=== PATIENT | male | born 1965 | race Caucasian/White ===

== ENCOUNTER 2017-11-22 15:54 | Emergency (ER) | payer MEDICAID, OTHER ==
[~2017-11-22] VITALS: Ht 175.3 cm; Wt 99.0 kg
[2017-11-22 22:00] LABS: CLARITY URINE CLOUDY (CLEAR); COLOR URINE YELLOW (YELLOW); KETONES URINE NEGATIVE (NEGATIVE); LEUKOCYTE ESTERASE URINE 3+ (NEGATIVE); NITRITE URINE POSITIVE (NEGATIVE); OCCULT BLOOD URINE 2+ (NEGATIVE); PROTEIN URINE 2+ (NEGATIVE); SPECIFIC GRAVITY URINE 1.017 (1.005-1.030); UROBILINOGEN URINE 0.2 E.U./dL (0.2-1.0)
[2017-11-22] MEDS ORDERED: CEFTRIAXONE 1 G PREMIX 50 ML IV ONE (22:30)
[2017-11-22 23:16] VITALS: BP 134/79
== END 2017-11-22 23:19 | disposition home or self-care (01) ==
LOC: ER 17:20
DX: N39.0 Urinary tract infection, site not specified (principal); M79.89 Other specified soft tissue disorders; Z85.72 Personal history of non-Hodgkin lymphomas
CPT/HCPCS: 51702; 81001; 87077; 87086; 87186; 96365; 99284; J0696

== ENCOUNTER 2018-02-21 11:20 | Inpatient (IN) | payer MEDICAID, OTHER ==
[~2018-02-21] VITALS: Ht 175.3 cm; Wt 93.9 kg
[2018-02-21] MEDS ORDERED: SODIUM CHLORIDE 0.9% 1,000 ML IV ONE ×2 (11:37→13:25)
[2018-02-21] MEDS ORDERED: KETOROLAC 30MG/ML VIAL IV ONE (11:45)
[2018-02-21 12:17] LABS: HEMATOCRIT. 23.3 % (42.0-52.0); HEMOGLOBIN. 8.2 g/dL (14.0-18.0); MEAN CORPUSCULAR VOLUME 90.7 fL (80.0-94.0); MEAN PLATELET VOLUME 7.3 fl (7.4-10.4); PLATELET 51 x1000/uL (130-400); RED BLOOD CELL COUNT 2.57 mill/uL (4.7-6.1); RED CELL DISTRIBUTION WIDTH 19.9 % (11.6-14.6)
[2018-02-21 12:23] LABS: CHLORIDE 71 mEq/L (98-107)
[2018-02-21 12:25] LABS: INR 1.5
[2018-02-21 12:29] LABS: PLATELET ESTIMATE MARKEDLY DECREASED
[2018-02-21] MEDS ORDERED: VANCOMYCIN 1 G PREMIX 200 ML IV ONE (14:00)
[2018-02-21] MEDS ORDERED: PIPERACILLIN/TAZ 3.375G PREMIX 50 ML IV ONE (14:00)
[2018-02-21 18:05] VITALS: BP 88/47
[2018-02-21 18:45] VITALS: BP 88/47
[2018-02-21] MEDS ORDERED: GUAIFENESIN 200MG/10ML SUGAR FREE UDC PO PRN (19:30)
[2018-02-21] MEDS ORDERED: CLONIDINE 0.1MG TABLET PO PRN (19:30)
[2018-02-21] MEDS ORDERED: DOCUSATE SODIUM 100MG CAPSULE PO PRN (19:30)
[2018-02-21 20:00] VITALS: BP 96/53
[2018-02-21] MEDS ORDERED: GABA-531 MT (21:51)
[2018-02-21 22:00] VITALS: BP 87/43
[2018-02-21] MEDS: ACETAMINOPHEN 325MG TABLET PO PRN (22:01)
[2018-02-21] MEDS: SODIUM CHLORIDE 0.9% 1,000 ML IV SCH (22:01)
[2018-02-21] MEDS: ONDANSETRON HCL 4MG/2ML VIAL IV PRN (22:01)
[2018-02-21] MEDS: MIDODRINE HCL 5MG TABLET PO SCH (22:02)
[2018-02-22] VITALS (12 sets, daily range): BP systolic 87–115; BP diastolic 49–107
[2018-02-22] MEDS: DIPHENHYDRAMINE 50MG/ML VIAL IV PRN ×2 (02:45→21:55)
[2018-02-22] MEDS ORDERED: HYDR4TAB56 PO (03:09)
[2018-02-22] MEDS ORDERED: BACL-141 PO (03:26)
[2018-02-22] MEDS ORDERED: EMTR1TAB12 PO (03:26)
[2018-02-22] MEDS ORDERED: DOLU50TA PO (03:26)
[2018-02-22] MEDS ORDERED: PANT40TA4 PO (03:26)
[2018-02-22] MEDS ORDERED: ONDA4TAB5 PO (03:26)
[2018-02-22] MEDS: SODIUM CHLORIDE 0.9% 1,000 ML IV SCH ×3 (03:38→21:42)
[2018-02-22] MEDS: HYDROCODONE/ACETAMINOPHEN 5/325MG TABLET PO PRN ×2 (03:43→14:15)
[2018-02-22] MEDS: ONDANSETRON HCL 4MG/2ML VIAL IV PRN ×2 (06:44→22:23)
[2018-02-22 06:50] LABS: HEMATOCRIT. 23.4 % (42.0-52.0); HEMOGLOBIN. 8.3 g/dL (14.0-18.0); MEAN CORPUSCULAR HEMOGLOBIN 31.7 pg (28.0-32.0); MEAN CORPUSCULAR VOLUME 89.8 fL (80.0-94.0); MEAN PLATELET VOLUME 8.1 fl (7.4-10.4); RED CELL DISTRIBUTION WIDTH 20.9 % (11.6-14.6)
[2018-02-22 06:59] LABS: CHLORIDE 75 mEq/L (98-107)
[2018-02-22 08:18] LABS: PLATELET 49 x1000/uL (130-400)
[2018-02-22] MEDS: MIDODRINE HCL 5MG TABLET PO SCH ×3 (09:11→17:12)
[2018-02-22 10:23] LABS: PLATELET ESTIMATE MARKEDLY DECREASED
[2018-02-22] MEDS: MAGNESIUM/ALUMINUM HYDROXIDE/SIMETHICONE 30ML UDC PO PRN (21:41)
[2018-02-23] VITALS (12 sets, daily range): BP systolic 60–100; BP diastolic 12–80
[2018-02-23] MEDS: SODIUM CHLORIDE 0.9% 1,000 ML IV SCH ×3 (03:56→18:37)
[2018-02-23] MEDS: HYDROCODONE/ACETAMINOPHEN 5/325MG TABLET PO PRN ×2 (04:42→20:27)
[2018-02-23] MEDS: MIDODRINE HCL 5MG TABLET PO SCH ×3 (09:01→16:08)
[2018-02-23] MEDS ORDERED: LIDOCAINE HCL/PF 1% 10 MG/ML 5ML VIAL ONE (12:03)
[2018-02-23] MEDS ORDERED: HEPARIN 1000 UNITS/ML 10ML ONE (12:04)
[2018-02-23 14:27] LABS: HEMATOCRIT. 24.8 % (42.0-52.0); HEMOGLOBIN. 8.5 g/dL (14.0-18.0); MEAN CORPUSCULAR HEMOGLOBIN 31.4 pg (28.0-32.0); MEAN CORPUSCULAR VOLUME 91.6 fL (80.0-94.0); RED CELL DISTRIBUTION WIDTH 20.8 % (11.6-14.6)
[2018-02-23 14:30] LABS: PLATELET 49 x1000/uL (130-400)
[2018-02-23 14:56] LABS: PLATELET ESTIMATE MARKEDLY DECREASED
[2018-02-23] MEDS: ONDANSETRON HCL 4MG/2ML VIAL IV PRN ×2 (18:16→23:57)
[2018-02-23] MEDS: DIPHENHYDRAMINE 50MG/ML VIAL IV PRN (20:21)
[2018-02-24] VITALS (13 sets, daily range): BP systolic 84–105; BP diastolic 39–56
[2018-02-24] MEDS: DIPHENHYDRAMINE 50MG/ML VIAL IV PRN ×2 (03:11→21:45)
[2018-02-24] MEDS: HYDROCODONE/ACETAMINOPHEN 5/325MG TABLET PO PRN (03:12)
[2018-02-24] MEDS: SODIUM CHLORIDE 0.9% 1,000 ML IV SCH (03:13)
[2018-02-24 07:14] LABS: HEMOGLOBIN. 7.8 g/dL (14.0-18.0); MEAN CORPUSCULAR HEMOGLOBIN 31.8 pg (28.0-32.0); MEAN CORPUSCULAR VOLUME 93.8 fL (80.0-94.0); MEAN PLATELET VOLUME 9.1 fl (7.4-10.4); RED BLOOD CELL COUNT 2.45 mill/uL (4.7-6.1)
[2018-02-24 08:30] LABS: PLATELET 40 x1000/uL (130-400)
[2018-02-24] MEDS: MAGNESIUM/ALUMINUM HYDROXIDE/SIMETHICONE 30ML UDC PO PRN (09:10)
[2018-02-24] MEDS: MIDODRINE HCL 5MG TABLET PO SCH ×3 (09:11→18:20)
[2018-02-24] MEDS: ACETAMINOPHEN 325MG TABLET PO PRN (09:11)
[2018-02-24] MEDS: SODIUM CHLORIDE 0.45% 1,000 ML IV SCH (09:12)
[2018-02-24] MEDS: ONDANSETRON HCL 4MG/2ML VIAL IV PRN ×2 (09:13→21:45)
[2018-02-24] MEDS ORDERED: METOCLOPRAMIDE HCL 10MG/2ML VIAL IV PRN (11:30)
[2018-02-24 12:47] LABS: HEPATITIS B SURFACE ANTIGEN NEGATIVE
[2018-02-24 13:07] LABS: PLATELET ESTIMATE MARKEDLY DECREASED
[2018-02-24 13:14] LABS: HEPATITIS B CORE AB IGM NEGATIVE
[2018-02-24 13:16] LABS: HEPATITIS A AB IGM NEGATIVE (NEGATIVE)
[2018-02-25] VITALS (90 sets, daily range): BP systolic 55–151; BP diastolic 12–115
[2018-02-25 07:18] LABS: COMPLEMENT C3 131 mg/dL (82-167)
[2018-02-25 07:18] LABS: MEAN CORPUSCULAR HEMOGLOBIN 31.9 pg (28.0-32.0); MEAN CORPUSCULAR VOLUME 95.1 fL (80.0-94.0); MEAN PLATELET VOLUME 9.3 fl (7.4-10.4); RED BLOOD CELL COUNT 2.18 mill/uL (4.7-6.1); RED CELL DISTRIBUTION WIDTH 22.6 % (11.6-14.6)
[2018-02-25 08:21] LABS: HEMATOCRIT. 20.7 % (42.0-52.0); PLATELET 40 x1000/uL (130-400)
[2018-02-25 08:31] LABS: PHOSPHORUS 2.5 mg/dL (2.5-4.9)
[2018-02-25 09:12] LABS: PARTIAL THROMBOPLASTIN TIME 45.3 sec (23.4-31.0)
[2018-02-25 09:17] LABS: INR 3.7; PROTHROMBIN TIME 38.3 sec (9.4-11.6)
[2018-02-25] MEDS ORDERED: LIDOCAINE HCL/PF 1% 2ML VIAL ONE (09:19)
[2018-02-25] MEDS: MIDODRINE HCL 5MG TABLET PO SCH ×3 (09:47→17:00)
[2018-02-25] MEDS ORDERED: HETASTARCH/NORMAL SALINE 250 ML IV SCH (10:00)
[2018-02-25] MEDS ORDERED: HETASTARCH/NORMAL SALINE 500 ML PLAST..BAG IV SCH (10:00)
[2018-02-25] MEDS: SODIUM CHLORIDE 0.45% 1,000 ML IV SCH (10:05)
[2018-02-25] MEDS ORDERED: FUROSEMIDE 20MG/2ML VIAL IVP SCH (10:30)
[2018-02-25] MEDS: LORAZEPAM 2MG/ML CPJ IV PRN ×2 (10:37→22:19)
[2018-02-25 11:53] LABS: BG BASE EXCESS -10.7 mmol/L (-2.0-2.0); BG CARBOXYHEMOGLOBIN 0.1 % (0.5-1.5); BG DEOXYHEMOGLOBIN 2.7 % (0.0-5.0); BG HCO3 ACT 11.7 mmol/L (22.0-26.0); BG METHEMOGLOBIN 0.3 % (0.0-1.5); BG OXYGEN SATURATION 97.3 % (92.0-98.5); BG OXYHEMOGLOBIN 96.9 % (94.0-97.0); BG PCO2 17.2 mmHg (35.0-45.0); BG PO2 102.4 mmHg (75.0-100.0); BG SAMPLE SITE RIGHT RADIAL; BG TOTAL HEMOGLOBIN 8.2 g/dL (12.0-18.0); BG VENT MODE NASAL CANNULA
[2018-02-25] MEDS: NOREPINEPHRINE 4 MG in DEXT 5% WATER 246 ML IV PRN ×2 (13:26→21:39)
[2018-02-25] MEDS: ONDANSETRON HCL 4MG/2ML VIAL IV PRN (14:13)
[2018-02-25 14:36] LABS: PLATELET ESTIMATE MARKEDLY DECREASED
[2018-02-25] MEDS ORDERED: SODIUM BICARBONATE 8.4% 1 MEQ/ML 50ML SYR IV ONE (16:00)
[2018-02-25] MEDS ORDERED: MIDAZOLAM HCL 100 MG in DEXT 5% WATER 80 ML IV PRN (16:15)
[2018-02-25] MEDS ORDERED: IPRATROPIUM/ALBUTEROL 0.5-3(2.5)MG/3ML NEB HHN PRN (16:30)
[2018-02-25] MEDS ORDERED: ETOMIDATE 2MG/ML 10ML VIAL IV ONE ×2 (17:00)
[2018-02-25] MEDS ORDERED: VECURONIUM BROMIDE 10 MG/VIAL IV ONE (17:00)
[2018-02-25] MEDS: VASOPRESSIN 10 UNIT in SODIUM CHLORIDE 0.9% 99.5 ML IV PRN ×2 (17:24→21:10)
[2018-02-25 17:55] LABS: BG BASE EXCESS -8.5 mmol/L (-2.0-2.0); BG CARBOXYHEMOGLOBIN 0.3 % (0.5-1.5); BG DEOXYHEMOGLOBIN 12.4 % (0.0-5.0); BG FRACTION INSPIRED OXYGEN 60; BG HCO3 ACT 18.3 mmol/L (22.0-26.0); BG METHEMOGLOBIN 0.4 % (0.0-1.5); BG OXYGEN SATURATION 87.5 % (92.0-98.5); BG OXYHEMOGLOBIN 86.9 % (94.0-97.0); BG PCO2 43.3 mmHg (35.0-45.0); BG PH 7.244 (7.350-7.450); BG PO2 64.8 mmHg (75.0-100.0); BG SAMPLE SITE RIGHT BRACHIAL; BG TIDAL VOLUME(mL) 500 mL; BG TOTAL HEMOGLOBIN 8.9 g/dL (12.0-18.0); BG VENT MODE VENT - A/C; BG VENT RATE 16 set
[2018-02-25] MEDS ORDERED: CEFEPIME 1,000 MG in DEXT 5% WATER 100 ML IV SCH (18:00)
[2018-02-25] MEDS: PANTOPRAZOLE SODIUM 40 MG/VIAL IV SCH (18:21)
[2018-02-25] MEDS: METRONIDAZOLE 500 MG PREMIX 100 ML IV SCH (18:22)
[2018-02-25] MEDS: PHENYLEPHRINE 20 MG in DEXT 5% WATER 248 ML IV PRN ×4 (18:33→23:06)
[2018-02-25] MEDS: FENTANYL CITRATE/PF 500 MCG in SODIUM CHLORIDE 0.9% 40 ML IV PRN ×2 (18:36→19:51)
[2018-02-25 18:52] LABS: HEMATOCRIT 25.2 % (42.0-52.0); HEMOGLOBIN 8.8 g/dL (14.0-18.0)
[2018-02-25 19:02] LABS: AMMONIA 59 uMol/L (<32)
[2018-02-25] MEDS ORDERED: PHYTONADIONE 10MG/ML AMP SUBCUT NR (20:00)
[2018-02-25] MEDS ORDERED: DOLU50TA PO (20:22)
[2018-02-25] MEDS ORDERED: EMTR1TAB12 PO (20:22)
[2018-02-25] MEDS: MEROPENEM 500 MG in SODIUM CHLORIDE 0.9% 50 ML IV SCH (20:45)
[2018-02-25] MEDS: EPINEPHRINE 1 MG in SODIUM CHLORIDE 0.9% 249 ML IV PRN (21:01)
[2018-02-25] MEDS ORDERED: NOREPINEPHRINE 16 MG in DEXT 5% WATER 500 ML IV PRN (23:11)
[2018-02-25] MEDS ORDERED: SODIUM BICARBONATE 100 MEQ in DEXTROSE 5% WATER 1,000 ML IV SCH (23:15)
[2018-02-25] MEDS ORDERED: NOREPINEPHRINE 16MG in DEXT 5% WATER 500ML (DOUBLE CONC) IV PRN (23:59)
[2018-02-26] VITALS (104 sets, daily range): BP systolic 42–146; BP diastolic 14–70
[2018-02-26] MEDS: FENTANYL CITRATE/PF 500 MCG in SODIUM CHLORIDE 0.9% 40 ML IV PRN ×2 (00:11→09:01)
[2018-02-26] MEDS ORDERED: SODIUM BICARBONATE 100 MEQ in DEXTROSE 5% WATER 1,000 ML IV SCH (00:30)
[2018-02-26 00:58] LABS: HEMATOCRIT 22.9 % (42.0-52.0); HEMOGLOBIN 7.8 g/dL (14.0-18.0)
[2018-02-26] MEDS: PHENYLEPHRINE 40 MG in DEXT 5% WATER 496 ML IV PRN ×2 (01:06→05:14)
[2018-02-26] MEDS: METRONIDAZOLE 500 MG PREMIX 100 ML IV SCH ×2 (02:38→09:01)
[2018-02-26 05:50] LABS: HEMATOCRIT. 23.2 % (42.0-52.0); HEMOGLOBIN. 7.6 g/dL (14.0-18.0); MEAN CORPUSCULAR HEMOGLOBIN 31.1 pg (28.0-32.0); MEAN CORPUSCULAR VOLUME 94.8 fL (80.0-94.0); MEAN PLATELET VOLUME 10.3 fl (7.4-10.4); RED BLOOD CELL COUNT 2.45 mill/uL (4.7-6.1); RED CELL DISTRIBUTION WIDTH 20.5 % (11.6-14.6)
[2018-02-26] MEDS: VASOPRESSIN 10 UNIT in SODIUM CHLORIDE 0.9% 99.5 ML IV PRN ×5 (06:12→23:39)
[2018-02-26 06:32] LABS: BG BASE EXCESS -15.8 mmol/L (-2.0-2.0); BG CARBOXYHEMOGLOBIN 0.3 % (0.5-1.5); BG DEOXYHEMOGLOBIN 21.9 % (0.0-5.0); BG FRACTION INSPIRED OXYGEN 100; BG METHEMOGLOBIN 0.3 % (0.0-1.5); BG OXYHEMOGLOBIN 77.5 % (94.0-97.0); BG PCO2 44.3 mmHg (35.0-45.0); BG PH 7.087 (7.350-7.450); BG PO2 55.8 mmHg (75.0-100.0); BG SAMPLE SITE RIGHT RADIAL; BG TIDAL VOLUME(mL) 500 mL; BG TOTAL HEMOGLOBIN 8.1 g/dL (12.0-18.0); BG VENT MODE VENT - A/C; BG VENT RATE 16 set
[2018-02-26 07:17] LABS: NUCLEATED RED BLOOD CELLS 5 /100 WBC
[2018-02-26 07:18] LABS: PLATELET ESTIMATE MARKEDLY DECREASED
[2018-02-26 07:35] LABS: PLATELET 40 x1000/uL (130-400)
[2018-02-26] MEDS ORDERED: PHENYLEPHRINE 80 MG in DEXT 5% WATER 500 ML IV PRN (08:00)
[2018-02-26] MEDS ORDERED: SODIUM BICARBONATE 8.4% 1 MEQ/ML 50ML SYR IV SCH (08:00)
[2018-02-26] MEDS: PANTOPRAZOLE SODIUM 40 MG/VIAL IV SCH ×2 (08:09→17:01)
[2018-02-26] MEDS: MIDODRINE HCL 5MG TABLET PO SCH (08:10)
[2018-02-26] MEDS: MEROPENEM 500 MG in SODIUM CHLORIDE 0.9% 50 ML IV SCH ×2 (08:10→21:35)
[2018-02-26] MEDS: SODIUM BICARBONATE 150 MEQ in DEXTROSE 5% WATER 1,000 ML IV SCH ×2 (08:23→23:29)
[2018-02-26] MEDS: EPINEPHRINE 1 MG in SODIUM CHLORIDE 0.9% 249 ML IV PRN ×5 (08:24→15:57)
[2018-02-26] MEDS ORDERED: PHENYLEPHRINE 80 MG in DEXT 5% WATER 496 ML IV PRN (08:30)
[2018-02-26] MEDS: NOREPINEPHRINE 32 MG in DEXT 5% WATER 468 ML IV PRN (08:39)
[2018-02-26] MEDS: PHENYLEPHRINE 80 MG in DEXT 5% WATER 492 ML IV PRN ×3 (08:52→23:27)
[2018-02-26] MEDS ORDERED: LIDOCAINE HCL/PF 1% 10 MG/ML 5ML VIAL ONE (08:54)
[2018-02-26] MEDS: IPRATROPIUM/ALBUTEROL 0.5-3(2.5)MG/3ML NEB HHN SCH ×2 (09:14→13:52)
[2018-02-26] MEDS ORDERED: DOXYCYCLINE 100 MG in DEXT 5% WATER 100 ML IV SCH (14:00)
[2018-02-26] MEDS ORDERED: VANCOMYCIN 1500MG in DEXTROSE 5% WATER 250ML IV SCH (15:00)
[2018-02-26] MEDS: EPINEPHRINE 4 MG in SODIUM CHLORIDE 0.9% 246 ML IV PRN ×2 (17:39→22:41)
[2018-02-26] MEDS ORDERED: ATOVAQUONE 750MG/5ML PACKET PO SCH (18:20)
[2018-02-27] VITALS (13 sets, daily range): BP systolic 54–94; BP diastolic 16–52
[2018-02-27] MEDS: IPRATROPIUM/ALBUTEROL 0.5-3(2.5)MG/3ML NEB HHN SCH (00:58)
[2018-02-27] MEDS: NOREPINEPHRINE 32 MG in DEXT 5% WATER 468 ML IV PRN (02:45)
[2018-02-27 09:06] LABS: ABSOLUTE LYMPHOCYTES 0.3 x10E3/uL (0.7-3.1); ABSOLUTE MONOCYTES 0.6 x10E3/uL (0.1-0.9); ABSOLUTE NEUTROPHILS 8.2 x10E3/uL (1.4-7.0); BASOPHILS 0 % (Not Estab.); HEMATOCRIT 27.2 % (37.5-51.0); HEMATOLOGY COMMENT Note: (.); HEMOGLOBIN 8.6 g/dL (13.0-17.7); IMMATURE GRANULOCYTES 1 % (Not Estab.); IMMATURE GRANULOCYTES ABSOLUTE 0.1 x10E3/uL (0.0-0.1); LYMPHOCYTES 3 % (Not Estab.); MEAN CORPUSCULAR HEMOGLOBIN 29.5 pg (26.6-33.0); MEAN CORPUSCULAR HGB CONC. 31.6 g/dL (31.5-35.7); MEAN CORPUSCULAR VOLUME 93 fL (79-97); MONOCYTES 7 % (Not Estab.); NEUTROPHILS 89 % (Not Estab.); PLATELETS 45 x10E3/uL (150-379); RBC 2.92 x10E6/uL (4.14-5.80); RED CELL DISTRIBUTION WIDTH 20.8 % (12.3-15.4); WBC 9.3 x10E3/uL (3.4-10.8)
== END 2018-02-27 03:45 | disposition expired | DRG 890 ==
LOC: ER 11:49 → ENRESERV 15:21 → CANBEDREQ 16:03 → 5EST 16:42 → CVICU 02-25 09:12
PROVIDERS: ADMIT Hospitalist; ATTEND Hospitalist
PROC: 05HN33Z Insertion of Infusion Device into Left Internal Jugular Vein, Percutaneous Approach (ICD-10-PCS; 2018-02-23)
PROC: B544ZZA Ultrasonography of Left Jugular Veins, Guidance (ICD-10-PCS; 2018-02-23)
PROC: 5A1945Z Respiratory Ventilation, 24-96 Consecutive Hours (ICD-10-PCS; principal; 2018-02-25)
PROC: 30233N1 Transfusion of Nonautologous Red Blood Cells into Peripheral Vein, Percutaneous Approach (ICD-10-PCS; 2018-02-25)
PROC: 30233L1 Transfusion of Nonautologous Fresh Plasma into Peripheral Vein, Percutaneous Approach (ICD-10-PCS; 2018-02-25)
PROC: 30233K1 Transfusion of Nonautologous Frozen Plasma into Peripheral Vein, Percutaneous Approach (ICD-10-PCS; 2018-02-25)
PROC: 0BH17EZ Insertion of Endotracheal Airway into Trachea, Via Natural or Artificial Opening (ICD-10-PCS; 2018-02-25)
DX: B20 Human immunodeficiency virus [HIV] disease (principal); J96.00 Acute respiratory failure, unspecified whether with hypoxia or hypercapnia; A41.9 Sepsis, unspecified organism; R65.21 Severe sepsis with septic shock; J69.0 Pneumonitis due to inhalation of food and vomit; J90 Pleural effusion, not elsewhere classified; N17.9 Acute kidney failure, unspecified; J80 Acute respiratory distress syndrome; D68.9 Coagulation defect, unspecified; C81.90 Hodgkin lymphoma, unspecified, unspecified site; I95.89 Other hypotension; E46 Unspecified protein-calorie malnutrition; I89.0 Lymphedema, not elsewhere classified; N39.0 Urinary tract infection, site not specified; Z66 Do not resuscitate; D69.6 Thrombocytopenia, unspecified; I82.402 Acute embolism and thrombosis of unspecified deep veins of left lower extremity; E87.1 Hypo-osmolality and hyponatremia; D64.9 Anemia, unspecified; E86.9 Volume depletion, unspecified; N13.9 Obstructive and reflux uropathy, unspecified; N18.9 Chronic kidney disease, unspecified; Z92.21 Personal history of antineoplastic chemotherapy; Z85.71 Personal history of Hodgkin lymphoma; Z92.3 Personal history of irradiation; Z99.2 Dependence on renal dialysis; Z68.30 Body mass index [BMI] 30.0-30.9, adult
CPT/HCPCS: 31500; 36415; 36569; 36600; 71045; 74176; 76937; 78580; 80048; 80053; 80061; 82140; 82375; 82533; 82550; 82805; 82962; 83605; 83735; 83930; 84100; 84443; 85014; 85018; 85025; 85610; 85730; 86160; 86359; 86360; 86705; 86709; 86803; 86850; 86900; 86920; 86927; 86945; 87040; 87070; 87340; 93005; 93306; 93970; 94002; 94003; 94640; 96361; 96365; 96367; 96375; 99285; C1752; C9113; J0692; J1200; J1644; J1885; J1940; J2060; J2185; J2250; J2370; J2405; J2543; J2765; J3010; J3370; J3430; J3490; J7030; J7040; J7050; J7060; J7070; J7620; P9016; P9017